=== PATIENT | male | born 1990 | race Caucasian/White ===

== ENCOUNTER 2016-08-12 11:58 | Emergency (ER) | payer SELFPAY ==
[2016-08-12 12:08] VITALS: BP 153/99
[2016-08-12] MEDS ORDERED: MOTRIN PO ONE (12:37)
--- NOTE | 2016-08-12 12:42 | Emergency Department Report ---
HPI - General Chief Complaint: Headache - HPI HPI: 26-year-old -[place] male comes in today for complaint of over indulged with alcohol on Monday and now he has a headache and reports that the roof of his mouth is painful and swollen. Patient reports that he started vomiting on Monday night he had nausea as well as a little vomiting today he has a headache. He reports that he did take some BC powders which she reports did not help he also reports that he has been drinking plenty of fluids. He denies any chest pain no nausea at this time denies any fever or chills denies any abdominal pains denies any change of vision. ED Past Medical Hx - Past Medical History Previous Medical History?: No - Surgical History Past Surgical History?: No - Social History Smoking Status: Never Smoker Substance Use Type: Alcohol, Marijuana - Medications Home Medications: Home Medications Medication Instructions Recorded Confirmed Last Taken Type Ibuprofen [Motrin] 600 mg PO Q8H PRN #30 tablet 08/12/16 Unknown Rx ED Review of Systems ROS: Stated complaint: HEAD PAIN/GUM SWEATS Other details as noted in HPI Eyes: denies: eye pain, eye discharge, vision change ENT: other (roof of mouth swollen and painful) Respiratory: denies: cough, shortness of breath, wheezing Cardiovascular: denies: chest pain, palpitations Endocrine: no symptoms reported Gastrointestinal: denies: abdominal pain, nausea, diarrhea Genitourinary: denies: urgency, dysuria Musculoskeletal: denies: back pain, joint swelling, arthralgia Skin: denies: rash, lesions Neurological: headache. denies: weakness, paresthesias Psychiatric: denies: anxiety, depression Hematological/Lymphatic: denies: easy bleeding, easy bruising Physical Exam - Physical Exam Vital Signs: Vital Signs 08/12/16 12:03 Temperature 98.7 F Pulse Rate 70 Respiratory 18 Rate Blood Pressure 153/99 O2 Sat by Pulse 100 Oximetry Physical Exam: GENERAL: Alert and oriented x3, no apparent distress, Normal Gait, atraumatic. HEAD: Head is normocephalic and a-traumatic. EYES: Extra ocular muscles are intact. Pupils are equal, round, and reactive to light and accommodation. NOSE: Nose symetrical, Nontender,Nares appeared normal. MOUTH:Mouth is well hydrated and without lesions. Tonsils nonerythematous or swollen, Uvula midline, Tongue not elevated. Mucous membranes are moist. Posterior pharynx clear, no exudate or lesions. Patent airways. Roof of mouth mild tenderness not erythematous no open sores no discharge NECK: Supple. Non edematous, No carotid bruits. No lymphadenopathy or thyromegaly. LUNGS: Symetrical with respiration, No wheezing, no rales or crackles, CTAB. HEART: S1, S2 present, regular rate and rhythm without murmur, no rubs, no gallops. EXTREMITIES/MUSCULOSKELETAL: No cyanosis, clubbing, rash, lesions or edema. Full ROM bilaterally. UE/LE Pulses 2+ bilaterally. LE and UE 5+ strength bilaterally NEUROLOGIC: No focal Deficit, Cranial nerves II through XII are grossly intact. No loss of sensation, No facial droop, Negative rhomberg. PSYCHIATRIC: Mood is congruent with affect, denies suicidal or homicidal ideations. SKIN: Warm and dry, No lesions, No ulceration or induration present ED Course Vital Signs 08/12/16 12:03 Temperature 98.7 F Pulse Rate 70 Respiratory 18 Rate Blood Pressure 153/99 O2 Sat by Pulse 100 Oximetry - Reevaluation(s) Reevaluation #1: 08/12/16 14:14 Patient reports that he feels much better after having the Motrin. Critical care attestation.: If time is entered above; I have spent that time in minutes in the direct care of this critically ill patient, excluding procedure time. ED Disposition Clinical Impression: Headache Qualifiers: Headache type: unspecified Headache chronicity pattern: acute headache Intractability: not intractable Qualified Code(s): R51 - Headache Disposition: DISCHARGED TO HOME OR SELFCARE Is pt being admited?: No Does the pt Need Aspirin: No Condition: Stable Instructions: Acute Headache (ED) Additional Instructions: Please take the Motrin as needed for headache. Highly encouraged to drink plenty of fluids. Prescriptions: Ibuprofen [Motrin] 600 mg PO Q8H PRN #30 tablet PRN Reason: Pain Referrals: PRIMARY CARE, [Primary Care Provider] - 3-5 Days Forms: Work/School Release Form(ED)
== END 2016-08-12 14:20 | disposition home or self-care (01) ==
LOC: EDSEX → ED 11:58
DX: R51 Headache (principal); F12.10 Cannabis abuse, uncomplicated
CPT/HCPCS: 99282